=== PATIENT | male | born 1945 | race Two or more races ===

== ENCOUNTER 2019-03-29 18:06 | Emergency (ER) | payer OTHER, MEDICAID ==
[~2019-03-29] VITALS: Ht 182.9 cm; Wt 86.2 kg
[2019-03-30 01:05] VITALS: BP 130/81
[2019-03-30] MEDS ORDERED: BACITRACIN TOP OINT 1 UD PKG TOP ONE (02:30)
[2019-03-30] MEDS ORDERED: ACETAMINOPHEN 325 MG TAB PO ONE (02:30)
== END 2019-03-30 02:48 | disposition home or self-care (01) ==
LOC: ER 18:09
DX: M79.674 Pain in right toe(s) (principal); E78.5 Hyperlipidemia, unspecified; I10 Essential (primary) hypertension
CPT/HCPCS: 73630